=== PATIENT | male | born 1965 | race Caucasian/White ===

== ENCOUNTER 2018-06-10 08:08 | Emergency (ER) | payer BC ==
[2018-06-10 08:22] VITALS: BP 173/95
--- NOTE | 2018-06-10 08:47 | UC ---
Respiratory Complaint HPI - HPI Summary HPI Summary: 4-5 DAYS OF COUGH, CONGESTION, WHEEZE. NO FEVER, N/V. - History of Current Complaint Chief Complaint: UCRespiratory Stated Complaint: COUGH/COLD Time Seen by Provider: 06/10/18 08:46 Hx Obtained From: Patient Onset/Duration: Gradual Onset, Lasting Days, Still Present Timing: Constant Severity Initially: Moderate Severity Currently: Moderate Pain Intensity: 0 Pain Scale Used: 0-10 Numeric Character: Cough: Nonproductive Aggravating Factors: Nothing Alleviating Factors: Nothing Associated Signs And Symptoms: Positive: Wheezing, URI, Nasal Congestion. Negative: Dyspnea, Fever, Chills - Allergies/Home Medications Allergies/Adverse Reactions: Allergies Allergy/AdvReac Type Severity Reaction Status Date / Time No Known Allergies Allergy Verified 06/10/18 08:22 Home Medications: Home Medications Dm/Acetaminophen/Doxylamine [Night Cold-Flu Relief Liq Gel] 1 each PO BEDTIME PRN 06/10/18 [History Confirmed 06/10/18] PMH/Surg Hx/FS Hx/Imm Hx Cardiovascular History: Hypertension - Surgical History Surgical History: Yes Surgery Procedure, Year, and Place: LEFT FIBULA/ANKLE 1997 - Family History Known Family History: Positive: Hypertension - Social History Alcohol Use: Occasionally Substance Use Type: None Smoking Status (MU): Never Smoked Tobacco Review of Systems All Other Systems Reviewed And Are Negative: Yes Constitutional: Positive: Negative ENT: Positive: Nasal Discharge Respiratory: Positive: Cough, Other - wheeze Cardiovascular: Positive: Negative Gastrointestinal: Positive: Negative Physical Exam Triage Information Reviewed: Yes Appearance: Well-Appearing, No Pain Distress, Well-Nourished Vital Signs: Initial Vital Signs Temp 97.2 F 06/10/18 08:17 Pulse 81 06/10/18 08:17 Resp 14 06/10/18 08:17 BP 173/95 06/10/18 08:17 Pulse Ox 95 06/10/18 08:17 Vital Signs Reviewed: Yes Eyes: Positive: Conjunctiva Clear ENT: Positive: Hearing grossly normal, Pharynx normal, TMs normal Neck: Positive: Supple, Nontender, No Lymphadenopathy Respiratory Exam: Normal Cardiovascular Exam: Normal Abdomen Description: Positive: Soft Musculoskeletal: Positive: No Edema Neurological: Positive: Alert Psychological: Positive: Age Appropriate Behavior Skin: Negative: Rashes Respiratory Course/Dx - Differential Dx/Diagnosis Provider Diagnosis: Acute URI Discharge - Sign-Out/Discharge Documenting (check all that apply): Patient Departure All imaging exams completed and their final reports reviewed: No Studies - Discharge Plan Condition: Stable Disposition: HOME Prescriptions: Albuterol HFA INHALER* [Ventolin HFA Inhaler*] 2 puff INH Q4H PRN #1 mdi PRN Reason: Shortness Of Breath Inhaler, Assist Devices [Aerochamber Mini] 1 each MC Q4H PRN #1 spacer PRN Reason: Cough predniSONE TAB* [Deltasone 20 MG TAB*] 40 mg PO DAILY #10 tab Patient Education Materials: Upper Respiratory Infection (ED), Bronchospasm (ED ) Referrals: Parvez Rodas MD [Primary Care Provider] - 1 Week Additional Instructions: YOUR SYMPTOMS ARE LIKELY VIRALLY MEDIATED AND SHOULD RESOLVE ON THEIR OWN WITH TIME. NO INDICATION FOR ANTIBIOTICS AT PRESENT. REST, HYDRATE, OTC MEDS NEEDED. WILL TREAT WITH PREDNISONE AND ALBUTEROL TO HELP WITH AIRWAY INFLAMMATION. USE OTC AFRIN FOR NASAL CONGESTION. 2 SPRAYS IN EACH NOSTRIL TWICE DAILY NEEDED. DO NOT USE FOR MORE THAN 3-4 DAYS IN A ROW TO PREVENT DEVELOPING REBOUND CONGESTION. IF YOU ARE NOT FEELING IMPROVED BY WEDNESDAY CALL ME HERE. I WILL BE HERE 2:30PM- 10PM. YOUR BLOOD PRESSURE WAS ELEVATED TODAY. YOU MUST FOLLOW-UP WITH YOUR PCP SIMONE TO DISCUSS TREATMENT OPTIONS. - Billing Disposition and Condition Condition: STABLE Disposition: Home
== END 2018-06-10 09:15 | disposition home or self-care (01) ==
LOC: UCEAST 08:08
DX: J06.9 Acute upper respiratory infection, unspecified (principal); I10 Essential (primary) hypertension
CPT/HCPCS: 99212; G0463